=== PATIENT | male | born 1990 | race African-American/Black ===

== ENCOUNTER 2017-07-15 17:30 | Emergency (ER) | payer SELFPAY ==
[~2017-07-15] VITALS: Ht 195.6 cm; Wt 120.0 kg
[2017-07-15] MEDS ORDERED: ACETAMINOPHEN 325MG TABLET PO ONE (23:00)
[2017-07-16 00:29] VITALS: BP 117/78
== END 2017-07-16 00:31 | disposition home or self-care (01) ==
LOC: ER 18:23
DX: S10.93XA Contusion of unspecified part of neck, initial encounter (principal); S09.90XA Unspecified injury of head, initial encounter; V79.9XXA Bus occupant (driver) (passenger) injured in unspecified traffic accident, initial encounter; Y93.89 Activity, other specified; Y92.89 Other specified places as the place of occurrence of the external cause; Y99.8 Other external cause status; F17.200 Nicotine dependence, unspecified, uncomplicated
CPT/HCPCS: 72040; 99284; Z7610